=== PATIENT | female | born 2000 | race Caucasian/White ===

== ENCOUNTER → 2024-06-20 | Outpatient (CLI) | payer MEDICAID, SELFPAY ==
--- NOTE | 2024-06-20 14:00 | XR_ITS ---
Examination: MRI lumbar spine without contrast Date and time of exam: June 20, 2024 1448 hours INDICATIONS: Low back pain worse in the 2011 paresthesias in the legs Technique: Multiple MRI axial and sagittal sections lumbar spine. Sagittal T2-weighted images, TR 3500, TE 118 T1 weighted transverse sections, TR 688 T8.5, T2-weighted sagittal sections T1 weighted sagittal sections TR 621, TE 30 T2 axial sections, TR 4, 190, TE 84. Findings: Adequate alignment lumbar vertebral bodies No lumbar fracture Normal marrow signal lumbar vertebral bodies Disc desiccation L4-L5, L5-S1 No spondylolisthesis L5-S1 6 mm central left paracentral, 8mm left foraminal disc bulge displacing the left S1 nerve root and producing left moderate L5 ganglionic compression L4-L5 partially extruded 7 mm central lumbar disc bulge severely indenting the thecal sac More cephalad levels unremarkable IMPRESSION: L5-S1 6 mm central left paracentral 8mm left foraminal disc bulge L4-L5 partially extruded 7 mm central lumbar disc bulge severely indenting thecal sac
== END | disposition home or self-care (01) ==
LOC: SMRI 14:11
PROVIDERS: PCP Nurse Practitioner Family; Referring Provider Nurse Practitioner Family; Visit Provider Nurse Practitioner Family
DX: M51.379 Other intervertebral disc degeneration, lumbosacral region without mention of lumbar back pain or lower extremity pain (principal); M51.26 Other intervertebral disc displacement, lumbar region
CPT/HCPCS: 72148

== ENCOUNTER 2024-09-04 19:19 | Emergency (ER) | payer MEDICAID, SELFPAY ==
[2024-09-04 19:20] VITALS: BMI 27.3
[2024-09-04 19:38] VITALS: BP 123/74; PULSE 84; RESP 18; TEMP 37.4; O2SAT 98
--- NOTE | 2024-09-04 19:45 | XR_ITS ---
Examination: Complete OB ultrasound, less than 14 weeks, transabdominal Date and time of exam: September 04, 2024 2049 hrs. Indications: Pelvic cramping and vaginal bleeding beginning 2 days ago, early by history Technique: Obstetrical ultrasound images less than 14 weeks performed via transabdominal imaging Findings: A normal shaped single intrauterine gestation is present in the uterus. CRL 0.6 cm corresponding to 6 weeks 3 days gestational age Cardiac motion 132 BPM Adjacent subchorionic hemorrhage 14 x 7 x 12 mm Ultrasonographic survey of visible structures unremarkable. Amniotic fluid volume appears appropriate for this estimated gestational age. Right ovary 4.5 cm arterial flow 26 mm corpus luteum cyst Left ovary obscured by bowel gas. Impression: Viable intrauterine gestation 6 weeks 3 days Recommend short-term follow-up pelvic sonography, given the subchorionic hemorrhage
--- NOTE | 2024-09-04 19:45 | PD.EDRME ---
Rapid Medical Screening Exam RME Arrival date/time: 09/04/24 19:19 24-year-old female approximately 7 weeks G1 presents emergency department complaining of abdominal cramping and vaginal spotting that started yesterday. Chief Complaint: Vaginal Bleeding Time Seen by Provider: 09/04/24 19:43 Vital signs: Vital Signs Temperature 99.3 F 09/04/24 19:38 Pulse Rate 84 09/04/24 19:38 Respiratory Rate 18 09/04/24 19:38 Blood Pressure 123/74 09/04/24 19:38 Pulse Oximetry (%) 98 09/04/24 19:38 Oxygen Delivery Method Room Air 09/04/24 19:38 Vital signs reviewed by provider: Yes
[2024-09-04 20:15] LABS: Collection Type, Urine Clean Catch; WBC,Urine 0 /hpf (0-5)
[2024-09-04 20:23] LABS: Bilirubin,Urine Negative (Negative); Blood,Urine Negative (Negative); Clarity,Urine Clear (Clear/Hazy); Color,Urine Colorless (Lt Yel-Yel); Culture Indicated,Urine Not Indicated; Glucose, Urine 4+ (Negative); Ketones,Urine Negative (Negative); Leukocyte Esterase,Urine Negative (Negative); Nitrite,Urine Negative (Negative); PH,Urine 6.5 (5.0-7.0); Protein,Urine Negative (Neg - Trace); RBC,Urine 1 /hpf (0-3); Specific Gravity,Urine 1.035 (1.001-1.035); Squamous Epithelial Cell,Urine 1 /hpf (0-5); Urobilinogen,Urine Negative mg/dL (0.0-1.0)
[2024-09-04 20:51] LABS: Basophils # (Auto) 0.1 Thou/mm3 (0.0-0.2); Basophils % (Auto) 1 % (0-2.5); Eosinophils # (Auto) 0.3 Thou/mm3 (0.0-0.5); Eosinophils % (Auto) 4 % (0-10); Hematocrit 35.5 % (36.0-46.0); Hemoglobin 12.4 g/dL (12.0-16.0); Immature Granulocytes % (Auto) 0 % (0-0); Immature Granulocytes Auto 0.02 Thou/mm3 (0.00-0.00); Lymphocytes % (Auto) 36 % (10-50); Mean Corpuscular HGB Conc 34.9 g/dl (31.0-37.0); Mean Corpuscular Hemoglobin 28.9 pg (25.0-35.0); Mean Corpuscular Volume 83 fL (80-100); Monocytes # (Auto) 0.6 Thou/mm3 (0.0-0.8); Monocytes % (Auto) 8 % (0-12); Neutrophils # (Auto) 4.3 Thou/mm3 (1.8-7.7); Neutrophils % (Auto) 52 % (37-80); Nucleated Red Blood Cell % 0 /100 WBC (0); Platelet Count 258 Thou/mm3 (140-440); RDW Standard Deviation 35.5 fL (36.4-46.3); Red Blood Count 4.29 Miln/mm3 (4.00-5.20); White Blood Count 8.2 Thou/mm3 (3.6-11.0)
[2024-09-04 21:11] LABS: Albumin/Globulin Ratio 1.6 (1.2-2.2); Alkaline Phosphatase 64 U/L (46-116); Anion Gap 7 (7-16); Aspartate Amino Transferase 14 U/L (0-34); BUN/Creatinine Ratio 14 Ratio (12-20); Bilirubin,Total 0.4 mg/dL (0.3-1.2); Blood Urea Nitrogen 11 mg/dL (9-23); Calcium 9.3 mg/dL (8.3-10.6); Calcium (Corrected) 9.3 mg/dL (8.5-10.1); Carbon Dioxide 24.7 mMol/L (20.0-31.0); Chloride 102 mMol/L (98-107); Creatinine (Component) 0.8 mg/dL (0.6-1.3); Estimated Creatinine Clearance 123.3 mL/min (>60); Globulin 2.5 gm/dL (2.3-3.5); Glucose 278 mg/dL (74-106); Osmolality,Calculated 277 (275-295); Potassium 4.2 mMol/L (3.4-5.1); Sodium 134 mMol/L (136-145); Total Protein 6.5 gm/dL (5.7-8.2); eGFR > 60 See Note
[2024-09-04 21:36] LABS: Alanine Aminotransferase 9 U/L (10-49); Beta HCG,Quantitative 30337 mIU/mL (<5.0)
--- NOTE | 2024-09-04 21:39 | EDNOTE_ITS ---
ED OB Contraction Preg RMI/HPI General Chief complaint: Vaginal Bleeding Stated complaint: 7 WEEKS , CRAMPING AND SPOTTING Time Seen by Provider: 09/04/24 19:43 Source: patient Arrival date/time: 09/04/24 19:19 24-year-old female approximately 7 weeks G1 presents emergency department complaining of abdominal cramping and vaginal spotting that started yesterday. Patient denies any fever, chills, vomiting, dysuria, or any other associated symptom. Mode of arrival: ambulatory Limitations: no limitations RME / HPI RME / HPI Narrative: 09/04/24 19:19 24-year-old female approximately 7 weeks G1 presents emergency department complaining of abdominal cramping and vaginal spotting that started yesterday. Related Data Allergies Allergy/AdvReac Type Severity Reaction Status Date / Time No Known Allergies Allergy Verified 06/16/23 19:19 Review of Systems Review of Systems Systems Reviewed: All systems reviewed, normal except as documented Constitutional Constitutional: Reports system reviewed and no additional complaints, except as documented, Denies body ache(s), Denies chills and Denies fever(s) Eyes Eyes: Reports system reviewed and no additional complaints, except as documented and Denies change in vision ENT Ears, Nose, Mouth, and Throat: Reports system reviewed and no additional complaints, except as documented, Denies disequilibrium, Denies dizziness, Denies sore throat and Denies vertigo Cardiovascular Cardiovascular: Reports system reviewed and no additional complaints, except as documented, Denies chest pain and Denies dyspnea Respiratory Respiratory: Reports system reviewed and no additional complaints, except as documented, Denies chest congestion, Denies cough and Denies dyspnea Gastrointestinal Gastrointestinal: Reports system reviewed and no additional complaints, except as documented, Reports abdominal pain, Denies nausea and Denies vomiting Genitourinary Genitourinary: Reports abnormal vaginal bleeding Musculoskeletal Musculoskeletal: Reports system reviewed and no additional complaints, except as documented, Denies abnormal gait and Denies arthralgias Integumentary/Breasts Skin/Breast: Reports system reviewed and no additional complaints, except as documented, Denies erythema, Denies rash and Denies wounds Neurologic Neurologic: Reports system reviewed and no additional complaints, except as documented, Denies abnormal gait, Denies disequilibrium, Denies dizziness and Denies vertigo Past Medical History Past Medical History CARDIAC: Negative Congestive Heart Failure RESPIRATORY: Negative Chronic Obstructive Pulmonary Disease (COPD) GENITOURINARY: Negative Renal Disease MUSCULOSKELETAL: Positive Musculoskeletal Disorders ENDOCRINE: Positive Diabetes Mellitus Type 1; Negative Diabetes Mellitus Type 2 Social History SMOKING STATUS: Never smoker ED Exam General Limitations: Present no limitations General appearance: Present alert and in no apparent distress Head Head exam: Present atraumatic Eye Eye exam: Present normal appearance, PERRL and EOMI ENT ENT exam: Present normal exam, normal oropharynx and mucous membranes moist Neck Neck exam: Present normal inspection, full ROM and trachea midline Chest Chest inspection: Present normal inspection and symmetric chest wall rise Respiratory Respiratory exam: Present normal lung sounds bilaterally Cardiovascular Cardiovascular exam: Present regular rate, normal rhythm and normal heart sounds Abdominal Exam Abdominal exam: Present soft and normal bowel sounds Extremities Exam Extremities exam: Present normal inspection and full ROM Back Exam Back exam: Present normal inspection and full ROM Neurological Exam Neurological exam: Present alert, oriented X3 and CN II-XII intact Psychiatric Psychiatric exam: Present normal affect and normal mood Skin Skin exam: Present warm, dry, intact and normal color Course Quality Measures none Orders Category Date Time Status US OB <= 14 weeks fetus Stat Exams 09/04/24 19:45 Completed ABO/RH Type Stat Lab 09/04/24 20:27 Completed Beta HCG,Quantitative Stat Lab 09/04/24 20:27 Completed CBC Stat Lab 09/04/24 20:27 Completed CMP [Comprehensive Metabolic Panel] Stat Lab 09/04/24 20:27 Completed Urinalysis, C/S if Indicated Stat Lab 09/04/24 19:56 Completed Vital Signs Vital signs: Vital Signs Temperature 99.3 F 09/04/24 19:38 Pulse Rate 84 09/04/24 19:38 Respiratory Rate 18 09/04/24 19:38 Blood Pressure 123/74 09/04/24 19:38 Pulse Oximetry (%) 98 09/04/24 19:38 Oxygen Delivery Method Room Air 09/04/24 19:38 98% room air within normal limits Vaginal Bleeding MDM Narrative MDM Narrative: 24-year-old female approximately 7 weeks G1 presents emergency department complaining of abdominal cramping and vaginal spotting that started yesterday. Patient denies any fever, chills, vomiting, dysuria, or any other associated symptom. CBC was unremarkable for any leukocytosis or anemia. CMP was unremarkable other than blood sugar 278 with patient known history of diabetes. Beta-hCG 30,307. Ultrasound finding viable intrauterine gestation 6 weeks 3 days and adjacent subchorionic hemorrhage 14 x 7 x 12 mm which may be because of patient's bleeding. Patient reports bleeding is very minimal and is just spotting. Patient instructed to have pelvic rest and follow-up with [facility] upon discharge and return to emergency department for any worsening symptoms or as needed. Patient data External records reviewed:: [facility] previous records Clinical information provided by:: patient Social determinants that could affect healthcare access:: none Patient has the following chronic illnesses:: See chart How is presenting disease/condition affected by chronic disease/condition?: uneffected by Evaluation data The following diagnostics were reviewed and interpreted by me:: lab results and radiology exam(s) Lab and/or radiology exams considered but not ordered:: Ordered Interpretation Summary: Interpreted by me Medications / Prescriptions Medications or Prescriptions considered but not ordered:: Ordered Medication administrations:: Given Consultations Consultation(s) initiated? (list below): No Diagnosis Vaginal Bleeding Differential Diagnosis: missed , threatened , dysfunctional uterine bleeding, ectopic without intrauterine and vaginal bleeding Most likely diagnosis given after review of the tests above:: Subchorionic hemorrhage Admission Indicated Admission indicated?: not indicated Admission Request Was there a request for admission?: No Disposition Plan Disposition Plan: Discharge Discharge Attestation Discharge Attestation: The patient and all family members were given an opportunity to ask questions and understood the discharge instructions. Discharge instructions specifically effects, indications for sooner follow up or return to the emergency department, and the expected course of current diagnosis. Patient condition: Stable Discharge Plan Plan Patient Disposition: HOME (Self Care) Disposition Comment: Stable Prescriptions/Referrals Referrals: Desirae Muller FNP [Primary Care Provider] - In 1 week Problem List Clinical Impression: Subchorionic hemorrhage in first trimester Patient/Caregiver Discharge Instructions Education Materials: Bleeding During Early Additional Instructions: Pelvic rest with no sexual intercourse. Drink plenty of fluids and stay hydrated. Follow-up with BUSINESS [facility]ING DIRECTOR in 2 to 3 days for repeat ultrasound and beta-hCG trend. Return to emergency department for any increased bleeding worsening symptoms or as needed. Print Language: Spanish Stand Alone Forms: [facility] Award Info., Patient Portal Info Letter YOHANNES/PHI Supervising Physician YOHANNES/PHI Supervising Physician: Dr. Vaughn
[2024-09-04 21:58] VITALS: RESP 18
== END 2024-09-04 21:59 | disposition home or self-care (01) ==
PROVIDERS: Emergency Provider Emergency Medicine; PCP Nurse Practitioner Family
DX: O20.8 Other hemorrhage in early pregnancy (principal); Z3A.01 Less than 8 weeks gestation of pregnancy
CPT/HCPCS: 36415; 76801; 80053; 81001; 84702; 85025; 86900; 86901; 99284